=== PATIENT | female | born 1945 | race Caucasian/White ===

== ENCOUNTER → 2020-07-03 09:25 | Outpatient (BNVA) | payer MEDICARE, MEDICAID, SELFPAY | PROVIDERS: PCP Family Medicine; Referring Provider Family Medicine; Visit Provider Physician Assistant | DX: K63.5 Polyp of colon (principal); E11.9 Type 2 diabetes mellitus without complications; K57.30 Diverticulosis of large intestine without perforation or abscess without bleeding; Z79.84 Long term (current) use of oral hypoglycemic drugs | CPT/HCPCS: 99203 ==

== ENCOUNTER 2020-09-18 08:37 | Day surgery (SDC) | payer MEDICARE, MEDICAID, SELFPAY ==
--- NOTE | 2020-09-16 14:17 | P.CONAN_ITS ---
Documented by User: Sydnie Hernandez 09/16/20 14:17 HPI - Anesthesia Eval Consult details Narrative: 74yo F for Colonoscopy [facility] Past Medical History Medical History Back pain Back pain Colon polyps Diabetes Diverticulosis of colon Knee arthropathy Surgical History Surgical History H/O colonoscopy Social History Social History Smoking Status: Never smoker Use of substances other than those prescribed or required for medical reasons: No Advance Directives: No Advance Directives Information Provided: Yes Recently lost weight without trying: No Meds Allergies Allergy/AdvReac Type Severity Reaction Status Date / Time No Known Allergies Allergy Verified 07/03/20 09:15 Home Medications Medication Instructions Recorded Confirmed Type metformin 1,000 mg tablet 1,000 mg PO BID 07/03/20 07/03/20 History Exam Exam Date and Time: September 16, 2020 141 Assessment and Plan Assessment Anesthesia Assessment: Chart Reviewed Documented by User: Laura Mora 09/18/20 09:26 [facility] Past Medical History Medical History Back pain Back pain Colon polyps Diabetes Diverticulosis of colon Knee arthropathy Surgical History Surgical History H/O colonoscopy Social History Social History Smoking Status: Never smoker Use of substances other than those prescribed or required for medical reasons: No Advance Directives: No Advance Directives Information Provided: Yes Recently lost weight without trying: No Meds Allergies Allergy/AdvReac Type Severity Reaction Status Date / Time No Known Allergies Allergy Verified 07/03/20 09:15 Home Medications Medication Instructions Recorded Confirmed Type metformin 1,000 mg tablet 1,000 mg PO BID 07/03/20 07/03/20 History Exam Airway Mallampati Class: II TM Dist: >3cm Neck ROM: Full Assessment and Plan Assessment Anesthesia Assessment: Anesthesia Plan Discussed and Chart Reviewed Final Anesthetic Review NPO: Yes ASA Class: II Final Preanesthetic Review: No Changes in Pt Med Stat, Meds/Allgs Chart Reviewed, Consent Obtained/Reviewed and Anes Risks/Benef Reviewed Patient Risk: Low Procedure Risk: Low Assessment/Block/Sedation in SS: Assess/Block/Sedation-SS Anesthetic Plan Anesthetic Plan: MAC: Disposition: Standard PACU
[2020-09-18 08:51] VITALS: TEMP 36.2; BMI 23.8
[2020-09-18] MEDS: Lactated Ringers 1,000 ML 100 ML IVCONT (09:19)
[2020-09-18 09:30] LABS: Glucose, Whole Blood 285 mg/dL (60-115)
[2020-09-18 10:04] VITALS: BP 120/75; PULSE 83; RESP 16; TEMP 36.1; O2SAT 98
[2020-09-18 10:26] VITALS: BP 119/78; PULSE 50; RESP 16; TEMP 36.1; O2SAT 100
--- NOTE | 2020-09-18 11:18 | HO.POSTANES ---
Post Anesthesia Evaluation Post Anesthesia Evaluation Vital Signs: Vital Signs Temp Pulse Resp BP Pulse Ox 09/18/20 10:26 97 F 50 16 119/78 100 09/18/20 10:04 97 F 83 16 120/75 98 09/18/20 08:51 97.2 F Anesthesia: Monitored Mental Status: Awake Pain Control: Satisfactory Nausea/Vomiting: None Hydration: Adequate Anesthesia-Related Issues: No Anes. Related Issues
--- NOTE | 2020-09-19 10:59 | OP_ITS ---
SURGEON: Yanely Wan MD PROCEDURE PERFORMED: Colonoscopy with excisional polypectomy x1, cold snare polypectomy x1. ESTIMATED BLOOD LOSS: 5cc COMPLICATIONS:NONE ANESTHESIA: Monitored. ANESTHESIOLOGIST: Madi Malagon CRNA. ASSISTANTS: No visitor information assistant. SPECIMENS:Ascending colon, Hepatic flexure. PREOPERATIVE DIAGNOSES: Colon cancer screening, history of tubular adenoma. POSTOPERATIVE DIAGNOSES: Colonic polyps, diverticulosis. INFORMATICA: Dr. Wan. DESCRIPTION OF PROCEDURE: Digital rectal exam revealed no specific lesion. Video colonoscope was introduced without difficulty. It was navigated into the rectum. In this region, there appear to be somewhat of a compression of the rectosigmoid making the movements of the angle slow and difficult. We changed the air insufflation to facilitate getting around corners. There were some significant diverticulosis as well in this area. Ultimately, I was able to move into the descending colon. There were scattered diverticula in this region; however, movement through rest of the colon was with much more ease. Prep was good. There were scattered scybalous stool requiring some flushing and dodging. I was able to destined at the cecum. Appendiceal orifice was seen. Ileocecal valve was well seen. In the ascending colon, there was a 2-3 mm polyp which was removed with cold snare polypectomy technique and retrieved. In the hepatic flexure a very diminutive, adenomatous polyp that was removed by excisional technique using cold biopsy forceps. The scope was slowly withdrawn. No additional lesions were seen. Anorectal verge was clear. PLAN: Current recommendations for repeat asymptomatic screening in this patient will be 5 years. Yanely Wan MD MEN/MODL / [phone] [facility]
== END 2020-09-18 11:06 | disposition home or self-care (01) ==
PROVIDERS: Visit Provider Internal Medicine Gastroenterology
PROC: 0DJD8ZZ Inspection of Lower Intestinal Tract, Via Natural or Artificial Opening Endoscopic (ICD-10-PCS; CPT 45378; principal; 2020-09-18 10:10)
DX: Z12.11 Encounter for screening for malignant neoplasm of colon (principal); Z86.010 Personal history of colon polyps; D12.2 Benign neoplasm of ascending colon; D12.3 Benign neoplasm of transverse colon; K57.30 Diverticulosis of large intestine without perforation or abscess without bleeding; E11.9 Type 2 diabetes mellitus without complications; Z79.84 Long term (current) use of oral hypoglycemic drugs
CPT/HCPCS: 45385; 45380; 82947; 88305

== ENCOUNTER → 2020-09-25 10:32 | Outpatient (BNVA) | payer MEDICARE, MEDICAID, SELFPAY | PROVIDERS: PCP Family Medicine; Referring Provider Family Medicine; Visit Provider Physician Assistant | DX: D12.6 Benign neoplasm of colon, unspecified (principal); K57.30 Diverticulosis of large intestine without perforation or abscess without bleeding | CPT/HCPCS: Q3014 ==

== ENCOUNTER 2020-11-11 11:45 | Outpatient (REF) | payer MEDICARE, MEDICAID, SELFPAY ==
--- NOTE | ~2020-11-11 | MM_ITS ---
EXAMINATION: MM SCREENING DIGITAL BREAST TOMOSYNTHESIS, BILATERAL CLINICAL INFORMATION: Screening. Asymptomatic. The lifetime risk of breast cancer based on the Tyrer-Cuzick Model is 2%. COMPARISON: Mammography: 06/07/2019, 05/23/2018 (new baseline). TECHNIQUE: Digital breast tomosynthesis is performed in both the craniocaudal and mediolateral oblique views along with computer-aided detection (CAD). Synthesized 2D images are generated from the tomosynthesis. FINDINGS: There are scattered areas of fibroglandular density (ACR BI-RADS breast composition Category b). There are no significant masses, abnormal calcifications, or other abnormalities. Parenchymal pattern is similar to prior studies. No significant changes. MM/MM tomosynthesis screening BI IMPRESSION: No mammographic evidence of malignancy. ASSESSMENT: BI-RADS 1: Negative RECOMMENDATION: Routine annual mammography screening. This patient's information was entered into a reminder system with a target due date for their next mammogram.
== END 2020-11-11 11:46 | disposition home or self-care (01) ==
LOC: HO.MAMMO 11:45
PROVIDERS: PCP Family Medicine; Visit Provider Family Medicine
DX: Z12.31 Encounter for screening mammogram for malignant neoplasm of breast (principal)
CPT/HCPCS: 77063; 77067

== ENCOUNTER → 2021-11-04 12:48 | Outpatient (BNVA) | payer MEDICARE, MEDICAID, SELFPAY | PROVIDERS: PCP Family Medicine; Referring Provider Internal Medicine; Visit Provider Physician Assistant | DX: K57.30 Diverticulosis of large intestine without perforation or abscess without bleeding (principal); D12.6 Benign neoplasm of colon, unspecified | CPT/HCPCS: 99212 ==

== ENCOUNTER 2021-11-17 09:04 | Outpatient (REF) | payer MEDICARE, MEDICAID, SELFPAY ==
--- NOTE | ~2021-11-17 | MM_ITS ---
EXAMINATION: MM SCREENING DIGITAL BREAST TOMOSYNTHESIS, BILATERAL CLINICAL INFORMATION: Screening. Asymptomatic. The lifetime risk of breast cancer based on the Tyrer-Cuzick Model is 2%. COMPARISON: Mammography: 11/11/2020, 06/07/2019, 05/23/2018 TECHNIQUE: Digital breast tomosynthesis is performed in both the craniocaudal and mediolateral oblique views along with computer-aided detection (CAD). Synthesized 2D images are generated from the tomosynthesis. Additional right MLO view is provided. FINDINGS: There are scattered areas of fibroglandular density (ACR BI-RADS breast composition Category b). There are no significant masses, abnormal calcifications, or other abnormalities. Parenchymal pattern is similar to prior studies. There is no developing density or architectural abnormality. The axilla and skin contours are unremarkable. No significant changes. MM/MM tomosynthesis screening BI IMPRESSION: No mammographic evidence of malignancy. ASSESSMENT: BI-RADS 1: Negative RECOMMENDATION: Routine annual mammography screening. This patient's information was entered into a reminder system with a target due date for their next mammogram.
== END 2021-11-17 09:05 | disposition home or self-care (01) ==
LOC: HO.MAMMO 09:04
PROVIDERS: PCP Internal Medicine; Visit Provider Internal Medicine
DX: Z12.31 Encounter for screening mammogram for malignant neoplasm of breast (principal)
CPT/HCPCS: 77063; 77067

== ENCOUNTER 2022-11-24 08:39 | Outpatient (REF) | payer MEDICARE, MEDICAID, SELFPAY ==
--- NOTE | ~2022-11-24 | MM_ITS ---
EXAMINATION: MM SCREENING DIGITAL BREAST TOMOSYNTHESIS, BILATERAL CLINICAL INFORMATION: Screening. Asymptomatic. The lifetime risk of breast cancer based on the Tyrer-Cuzick Model is 2%. COMPARISON: Mammography: 11/17/2021, 11/11/2020, 06/07/2019 TECHNIQUE: Digital breast tomosynthesis is performed in both the craniocaudal and mediolateral oblique views along with computer-aided detection (CAD). Synthesized 2D images are generated from the tomosynthesis. FINDINGS: There are scattered areas of fibroglandular density (ACR BI-RADS breast composition Category b). Parenchymal pattern is similar to prior exams. There are no significant masses, abnormal calcifications, or other abnormalities. No architectural abnormality or developing density or significant change from prior studies. The axilla and skin contours are unremarkable. MM/MM tomosynthesis screening BI IMPRESSION: No mammographic evidence of malignancy. ASSESSMENT: BI-RADS 1: Negative RECOMMENDATION: Routine annual mammography screening. This patient's information was entered into a reminder system with a target due date for their next mammogram.
== END 2022-11-24 08:40 | disposition home or self-care (01) ==
LOC: HO.MAMMO 08:39
PROVIDERS: Visit Provider Internal Medicine
DX: Z12.31 Encounter for screening mammogram for malignant neoplasm of breast (principal)
CPT/HCPCS: 77063; 77067

== ENCOUNTER 2023-03-21 09:41 | Outpatient (AMB) | payer MEDICARE, MEDICAID, SELFPAY ==
--- NOTE | 2023-03-21 10:28 | MHC.OFFVIS ---
Intake Vital Signs 03/21/23 10:36 Height 5 ft Weight 137 lb BMI 26.8 BP 141/76 H Blood Pressure Location Lt brachial Position Sitting Pulse 93 Intake Visit Reasons: Follow up diverticulosis Intake Note: Follow up for Diverticulosis. Patient denies any GI issues. Fermenter Required: No Accompanied by: Friend Allergies No Known Allergies Allergy (Verified 03/21/23 10:33) Medication List - Last Reconciled 03/21/23 by Nedra Hunt PA-C [glipizide 2.5 mg PO DAILY] metformin 1,000 mg PO BID methylcellulose (laxative) (Citrucel) 500 mg PO BID HPI HPI Comments History of Present Illness Details 77-year-old female personal history of colon polyps and history of diverticulosis follows up. Last seen October 2021-at which time she was doing quite well She is unsure why she is here she does not have any GI complaints. Has a good appetite, she has normal bowel pattern. She has no abdominal pain -she is able to manage diverticulosis quite well she has no issues. She maintains a high-fiber diet. She keeps herself active she has absolutely no GI or general complaints [facility] Medical History (Updated 03/21/23 @ 10:46 by Nedra Hunt PA-C) Back pain Back pain Colon polyps Diabetes Diverticulosis of colon Knee arthropathy Surgical History H/O colonoscopy Social History Household Members Other:: alone Alcohol intake: never Current occupational status: unemployed Review of Systems Const All systems reviewed & are unremarkable except as noted in HPI and below Card Denies chest pain and Denies dyspnea Resp Denies dyspnea GI Denies abdominal pain, Denies bloating, Denies hematochezia, Denies change in bowel habits, Denies tenesmus, Denies change in stool character, Denies constipation, Denies GI cramping, Denies excessive flatus, Denies dyspepsia, Denies heartburn, Denies fecal incontinence, Denies nausea and Denies vomiting Psych Reports no additional complaints Physical Exam Vital Signs: Last Vital Signs Pulse 93 03/21/23 10:36 BP 141/76 H 03/21/23 10:36 BMI result Body Mass Index 26.8 Const General: cooperative, healthy appearing, comfortable, no acute distress, well developed and well groomed Orientation/consciousness: patient oriented x3 Limitations: language barrier Eyes Sclerae: sclerae normal Resp Effort & Inspection: normal respiratory effort and able to speak in complete sentences Auscultation: clear to auscultation bilaterally, no rales, no rhonchi and no wheezes Cardio Rate: regular rate Rhythm: regular rhythm GI Palpation (GI): Soft to palpation and nontender Auscultation: normal bowel sounds Neuro General: patient oriented x3 Extrem General: Yes full ROM Psych Appearance: grossly normal and well kempt Speech and movement: Normal speech and movement present Affect: normal affect Attitude: cooperative Thought content: Normal thought content present Insight: Good insight present (Psych) Judgement: Good judgement present (Psych) Results Reviewed Results Reviewed: Last colonoscopy in 2020 revealed to tubular adenomas recommended repeating in 5 years dependent on her health. Assessment & Plan Assessment & Plan (1) Tubular adenoma of colon: Comment: colonoscopy with polypectomy x 2, pathology , tubular adenomas- Code(s): D12.6 - Benign neoplasm of colon, unspecified (2) Diverticulosis of colon: Comment: Diverticulosis of the colon, maintains a high-fiber diet-she may continue Citrucel tablets as well. Code(s): K57.30 - Diverticulosis of large intestine without perforation or abscess without bleeding Plan: Continue plan of care, No need to follow back with GI-unless GI issue occurs-however abdominal pain fever ETC go to ED However reviewed diverticulosis/diverticulitis ED protocol Plan Reviewed ED protocol for diverticulitis Maintain plan of care Follow-up PCP Patient Instructions: Very pleasant, alert , asymptomatic 77-year-old female history of diverticulosis- She will maintain plan of care Diverticulitis/ED protocol review Up to date on colonoscopy Encouraged to call with questions or concerns Coding Level of Care Code Est Pt Level 3 (46811) Diagnoses Tubular adenoma of colon D12.6 Diverticulosis of colon K57.30 Time Spent (min) 20
[2023-03-21 10:36] VITALS: BP 141/76; PULSE 93; BMI 26.8
== END 2023-03-21 11:12 | disposition home or self-care (01) ==
PROVIDERS: PCP Internal Medicine; Visit Provider Physician Assistant
DX: D12.6 Benign neoplasm of colon, unspecified (principal); K57.30 Diverticulosis of large intestine without perforation or abscess without bleeding
CPT/HCPCS: 99213

== ENCOUNTER → 2023-03-21 09:41 | Outpatient (BNVA) | payer MEDICARE, MEDICAID, SELFPAY | PROVIDERS: PCP Internal Medicine; Visit Provider Physician Assistant | DX: K57.30 Diverticulosis of large intestine without perforation or abscess without bleeding (principal); D12.6 Benign neoplasm of colon, unspecified | CPT/HCPCS: 99212 ==

== ENCOUNTER 2023-03-24 09:11 | Outpatient (REF) | payer MEDICARE, MEDICAID, SELFPAY ==
[2023-03-24 11:45] LABS: MANUAL DIFF FLAG NO
[2023-03-24 11:51] LABS: Basophils Absolute Auto 0.1 X10*3/uL (0.0-0.2); Basophils Percent Auto 0.6 % (0-2); Eosinophils Absolute Auto 0.3 X10*3/uL (0.0-0.4); Hematocrit 39.4 % (37.0-47.0); Hemoglobin 12.9 g/dl (12.0-16.0); Imm Gran Abs Auto 0.03 X10*3/uL (0.00-0.03); Imm Gran Pct Auto 0.3 % (0.0-0.4); Lymphocytes Absolute Auto 2.3 X10*3/uL (1.2-4.9); Mean Corpuscular HGB Conc 32.7 g/dl (31.0-35.0); Mean Corpuscular Hemoglobin 29.9 pg (27.0-33.0); Mean Corpuscular Volume 91.4 fL (80.0-98.0); Mean Platelet Volume 10.1 fL (9.4-12.3); Monocytes Absolute Auto 1.1 X10*3/uL (0.1-1.2); Monocytes Percent Auto 12.1 % (2-11); Neutrophils Absolute Auto 5.3 x10*3/uL (2.0-8.3); Platelet Count 244 X10*3/uL (160-400); Red Blood Count 4.31 X10*6/uL (4.20-5.50); Red Cell Distribution Width 12.2 % (11.0-16.0)
[2023-03-24 12:08] LABS: Alanine Aminotransferase 15 U/L (0-31); Albumin Level 4.1 g/dL (3.5-5.0); Alkaline Phosphatase 47 U/L (39-117); Anion Gap 14 (12-20); Aspartate Amino Transferase 15 U/L (5-31); Bilirubin Direct 0.2 mg/dL (0.0-0.5); Bilirubin Total 0.6 mg/dL (0.0-1.0); Blood Urea Nitrogen 11 mg/dL (9-16); Calcium 10.7 mg/dL (8.4-10.2); Carbon Dioxide 23 mmol/L (22-29); Chloride 104 mmol/L (96-108); Cholesterol 148 mg/dL; Estimated Glomerular Filt Rate > 60; Glucose Random 140 mg/dL (60-115); HDL Cholesterol 58 mg/dL; LDL Cholesterol Calculated 74 mg/dl; Potassium 4.7 mmol/L (3.3-5.1); Sodium 136 mmol/L (135-145); Total Protein 7.9 g/dL (6.5-8.0); Triglycerides 80 mg/dL
[2023-03-24 12:30] LABS: Microalbum/Creatinine Ratio Ur 9.3 ug/mg cr
== END 2023-03-24 09:12 | disposition home or self-care (01) ==
LOC: HO.HHCL 09:11
PROVIDERS: Visit Provider Internal Medicine
DX: I10 Essential (primary) hypertension (principal); E11.65 Type 2 diabetes mellitus with hyperglycemia; Z79.4 Long term (current) use of insulin
CPT/HCPCS: 36415; 80048; 80061; 80076; 82043; 85025

== ENCOUNTER 2023-03-28 08:47 | Outpatient (REF) | payer MEDICARE, MEDICAID, SELFPAY ==
[2023-03-28 11:50] LABS: MANUAL DIFF FLAG NO
[2023-03-28 12:10] LABS: Basophils Absolute Auto 0.1 X10*3/uL (0.0-0.2); Basophils Percent Auto 0.7 % (0-2); Eosinophils Absolute Auto 0.3 X10*3/uL (0.0-0.4); Eosinophils Percent Auto 3.6 % (0-4); Hematocrit 39.4 % (37.0-47.0); Hemoglobin 12.6 g/dl (12.0-16.0); Imm Gran Abs Auto 0.02 X10*3/uL (0.00-0.03); Imm Gran Pct Auto 0.3 % (0.0-0.4); Lymphocytes Absolute Auto 2.1 X10*3/uL (1.2-4.9); Lymphocytes Percent Auto 28.6 % (20-40); Mean Corpuscular Hemoglobin 29.9 pg (27.0-33.0); Mean Corpuscular Volume 93.6 fL (80.0-98.0); Mean Platelet Volume 10.2 fL (9.4-12.3); Monocytes Absolute Auto 0.8 X10*3/uL (0.1-1.2); Monocytes Percent Auto 10.7 % (2-11); Neutrophils Percent Auto 56.1 % (45-73); Platelet Count 243 X10*3/uL (160-400); Red Blood Count 4.21 X10*6/uL (4.20-5.50); Red Cell Distribution Width 12.3 % (11.0-16.0); White Blood Count 7.2 X10*3/uL (4.8-10.8)
[2023-03-28 12:24] LABS: Alanine Aminotransferase 17 U/L (0-31); Alkaline Phosphatase 42 U/L (39-117); Anion Gap 14 (12-20); Aspartate Amino Transferase 15 U/L (5-31); Bilirubin Direct 0.1 mg/dL (0.0-0.5); Bilirubin Total 0.3 mg/dL (0.0-1.0); Blood Urea Nitrogen 10 mg/dL (9-16); Calcium 10.1 mg/dL (8.4-10.2); Carbon Dioxide 23 mmol/L (22-29); Chloride 105 mmol/L (96-108); Cholesterol 148 mg/dL; Estimated Glomerular Filt Rate > 60; Glucose Random 123 mg/dL (60-115); HDL Cholesterol 58 mg/dL; LDL Cholesterol Calculated 76 mg/dl; Potassium 4.5 mmol/L (3.3-5.1); Sodium 137 mmol/L (135-145); Total Protein 7.8 g/dL (6.5-8.0); Triglycerides 73 mg/dL
[2023-03-28 13:35] LABS: Creatinine Urine 46.13 mg/dL; Microalbum/Creatinine Ratio Ur 99.7 ug/mg cr
[2023-03-30 23:33] LABS: PTHI 27 pg/mL (16-77)
== END 2023-03-28 08:48 | disposition home or self-care (01) ==
LOC: HO.HHCL 08:47
PROVIDERS: Visit Provider Internal Medicine
DX: E83.52 Hypercalcemia (principal); I10 Essential (primary) hypertension; E11.65 Type 2 diabetes mellitus with hyperglycemia; Z79.4 Long term (current) use of insulin
CPT/HCPCS: 36415; 80048; 80061; 80076; 82043; 83970; 85025